=== PATIENT | male | born 1965 ===

== ENCOUNTER → 2022-10-18 | Outpatient (CLI) | payer OTHER | END | disposition home or self-care (01) | LOC: US 10-13 13:30 | PROVIDERS: ATTEND Internal Medicine Nephrology | DX: R80.9 Proteinuria, unspecified (principal); I10 Essential (primary) hypertension; E08.21 Diabetes mellitus due to underlying condition with diabetic nephropathy ==

== ENCOUNTER → 2022-12-09 | Outpatient (CLI) | payer OTHER ==
[2022-12-09 12:48] LABS: ALKALINE PHOSPHATASE 125 U/L (46-116); BUN 18 mg/dl (9-23); CHLORIDE 95 mmol/L (98-107); POTASSIUM 4.6 mmol/L (3.4-5.1); SGPT/ALT 15 U/L (10-49); TOTAL PROTEIN 7.5 gm/dL (6.0-8.0)
== END | disposition home or self-care (01) ==
LOC: LAB 12:06
PROVIDERS: ATTEND Internal Medicine
DX: R06.02 Shortness of breath (principal)

== ENCOUNTER → 2023-07-19 | Outpatient (CLI) | payer OTHER ==
[2023-07-19 12:22] LABS: BASO # 0.1 10*3/uL (0.0-0.1); BASO % 0.6 % (0.0-1.0); EOS # 0.4 10*3/uL (0.0-0.4); EOS % 4.2 % (1.0-4.0); HEMATOCRIT 39.9 % (42.0-52.0); LYMPH # 1.4 10*3/uL (1.3-4.4); LYMPH % 15.3 % (27.0-41.0); MEAN CELL VOLUME 101.8 fl (80.0-94.0); MEAN CORPUSCULAR HGB 32.1 pg (27.0-31.0); MEAN CORPUSCULAR HGB CONC 31.6 g/dl (33.0-37.0); MEAN PLATELET VOLUME 9.1 fl (9.6-12.3); MONO % 11.6 % (3.0-9.0); NEUT % 67.7 % (47.0-73.0); PLATELET COUNT AUTOMATED 316 10*3/uL (130-400); RED BLOOD COUNT 3.92 10*6/uL (4.50-5.90); RED CELL DISTRI WIDTH 14.6 % (0-14.5); WHITE BLOOD COUNT 8.8 10*3/uL (4.8-10.8)
[2023-07-19 12:54] LABS: ALKALINE PHOSPHATASE 152 U/L (46-116); BUN 20 mg/dl (9-23); CHLORIDE 100 mmol/L (98-107); POTASSIUM 3.6 mmol/L (3.4-5.1); SGPT/ALT 12 U/L (5-49)
== END | disposition home or self-care (01) ==
LOC: LAB 03:52 → WOUNDCARE 03:52
PROVIDERS: ATTEND Nurse Practitioner Family
DX: E11.622 Type 2 diabetes mellitus with other skin ulcer (principal); L97.812 Non-pressure chronic ulcer of other part of right lower leg with fat layer exposed; L97.822 Non-pressure chronic ulcer of other part of left lower leg with fat layer exposed; S80.821A Blister (nonthermal), right lower leg, initial encounter; E11.40 Type 2 diabetes mellitus with diabetic neuropathy, unspecified; I87.2 Venous insufficiency (chronic) (peripheral); I48.91 Unspecified atrial fibrillation; I10 Essential (primary) hypertension; M19.90 Unspecified osteoarthritis, unspecified site; M10.9 Gout, unspecified; E78.5 Hyperlipidemia, unspecified; Z87.891 Personal history of nicotine dependence; W19.XXXA Unspecified fall, initial encounter; Y93.89 Activity, other specified; Y92.89 Other specified places as the place of occurrence of the external cause; Y99.8 Other external cause status

== ENCOUNTER → 2023-07-26 | Outpatient (CLI) | payer OTHER | END | disposition home or self-care (01) | LOC: WOUNDCARE 01:59 | PROVIDERS: ATTEND Nurse Practitioner Family | DX: E11.622 Type 2 diabetes mellitus with other skin ulcer (principal); L97.812 Non-pressure chronic ulcer of other part of right lower leg with fat layer exposed; L97.822 Non-pressure chronic ulcer of other part of left lower leg with fat layer exposed; S80.821D Blister (nonthermal), right lower leg, subsequent encounter; E11.40 Type 2 diabetes mellitus with diabetic neuropathy, unspecified; E11.65 Type 2 diabetes mellitus with hyperglycemia; I87.2 Venous insufficiency (chronic) (peripheral); I48.91 Unspecified atrial fibrillation; I10 Essential (primary) hypertension; M19.90 Unspecified osteoarthritis, unspecified site; M10.9 Gout, unspecified; E78.5 Hyperlipidemia, unspecified; E46 Unspecified protein-calorie malnutrition; Z68.43 Body mass index [BMI] 50.0-59.9, adult; Z87.891 Personal history of nicotine dependence; W19.XXXD Unspecified fall, subsequent encounter ==

== ENCOUNTER → 2023-08-03 | Outpatient (CLI) | payer OTHER | END | disposition home or self-care (01) | LOC: WOUNDCARE 02:02 | PROVIDERS: ATTEND Nurse Practitioner Family | DX: E11.622 Type 2 diabetes mellitus with other skin ulcer (principal); L97.812 Non-pressure chronic ulcer of other part of right lower leg with fat layer exposed; L97.822 Non-pressure chronic ulcer of other part of left lower leg with fat layer exposed; E11.40 Type 2 diabetes mellitus with diabetic neuropathy, unspecified; E11.65 Type 2 diabetes mellitus with hyperglycemia; I87.2 Venous insufficiency (chronic) (peripheral); I48.91 Unspecified atrial fibrillation; I10 Essential (primary) hypertension; M19.90 Unspecified osteoarthritis, unspecified site; M10.9 Gout, unspecified; E78.5 Hyperlipidemia, unspecified; E46 Unspecified protein-calorie malnutrition; E66.01 Morbid (severe) obesity due to excess calories; Z68.43 Body mass index [BMI] 50.0-59.9, adult; Z87.891 Personal history of nicotine dependence; Z91.199 Patient's noncompliance with other medical treatment and regimen due to unspecified reason; Z79.4 Long term (current) use of insulin; Z79.899 Other long term (current) drug therapy ==

== ENCOUNTER → 2023-08-10 | Outpatient (CLI) | payer OTHER | END | disposition home or self-care (01) | LOC: WOUNDCARE 02:09 | PROVIDERS: ATTEND Nurse Practitioner Family | DX: E11.622 Type 2 diabetes mellitus with other skin ulcer (principal); L97.822 Non-pressure chronic ulcer of other part of left lower leg with fat layer exposed; L97.812 Non-pressure chronic ulcer of other part of right lower leg with fat layer exposed; E11.40 Type 2 diabetes mellitus with diabetic neuropathy, unspecified; E11.65 Type 2 diabetes mellitus with hyperglycemia; I48.91 Unspecified atrial fibrillation; I10 Essential (primary) hypertension; I87.2 Venous insufficiency (chronic) (peripheral); M19.90 Unspecified osteoarthritis, unspecified site; M10.9 Gout, unspecified; E78.5 Hyperlipidemia, unspecified; E46 Unspecified protein-calorie malnutrition; E66.01 Morbid (severe) obesity due to excess calories; Z68.43 Body mass index [BMI] 50.0-59.9, adult; Z87.891 Personal history of nicotine dependence; Z91.199 Patient's noncompliance with other medical treatment and regimen due to unspecified reason; Z79.4 Long term (current) use of insulin; Z79.899 Other long term (current) drug therapy ==

== ENCOUNTER → 2023-08-18 | Outpatient (CLI) | payer OTHER | END | disposition home or self-care (01) | LOC: WOUNDCARE 04:37 | PROVIDERS: ATTEND Nurse Practitioner Family | DX: E11.622 Type 2 diabetes mellitus with other skin ulcer (principal); L97.822 Non-pressure chronic ulcer of other part of left lower leg with fat layer exposed; L97.812 Non-pressure chronic ulcer of other part of right lower leg with fat layer exposed; E11.40 Type 2 diabetes mellitus with diabetic neuropathy, unspecified; E11.65 Type 2 diabetes mellitus with hyperglycemia; I48.91 Unspecified atrial fibrillation; I10 Essential (primary) hypertension; I87.2 Venous insufficiency (chronic) (peripheral); M19.90 Unspecified osteoarthritis, unspecified site; M10.9 Gout, unspecified; E78.5 Hyperlipidemia, unspecified; E46 Unspecified protein-calorie malnutrition; E66.01 Morbid (severe) obesity due to excess calories; Z68.43 Body mass index [BMI] 50.0-59.9, adult; Z87.891 Personal history of nicotine dependence; Z91.199 Patient's noncompliance with other medical treatment and regimen due to unspecified reason; Z79.4 Long term (current) use of insulin; Z79.899 Other long term (current) drug therapy ==

== ENCOUNTER → 2023-08-25 | Outpatient (CLI) | payer OTHER | END | disposition home or self-care (01) | LOC: WOUNDCARE 01:40 | PROVIDERS: ATTEND Nurse Practitioner Family | DX: E11.622 Type 2 diabetes mellitus with other skin ulcer (principal); L97.822 Non-pressure chronic ulcer of other part of left lower leg with fat layer exposed; L97.812 Non-pressure chronic ulcer of other part of right lower leg with fat layer exposed; I87.2 Venous insufficiency (chronic) (peripheral); E11.65 Type 2 diabetes mellitus with hyperglycemia; E11.40 Type 2 diabetes mellitus with diabetic neuropathy, unspecified; E78.5 Hyperlipidemia, unspecified; E46 Unspecified protein-calorie malnutrition; I48.91 Unspecified atrial fibrillation; I10 Essential (primary) hypertension; M10.9 Gout, unspecified; M19.90 Unspecified osteoarthritis, unspecified site; Z87.891 Personal history of nicotine dependence; Z91.199 Patient's noncompliance with other medical treatment and regimen due to unspecified reason ==

== ENCOUNTER 2023-09-01 15:37 | Inpatient (IN) | payer OTHER ==
[~2023-09-01] VITALS: Ht 177.8 cm; Wt 158.4 kg
[2023-09-01 15:50] VITALS: BP 126/56
[2023-09-01] MEDS ORDERED: GABAPENTIN600 MG PO (16:42)
[2023-09-01] MEDS ORDERED: JANTOVEN2.5 MG PO (16:42)
[2023-09-01] MEDS ORDERED: LOPERAMIDE HCL2 MG PO (16:43)
[2023-09-01] MEDS ORDERED: RYBELSUS3 MG PO (16:45)
[2023-09-01] MEDS ORDERED: PRAVASTATIN SOD80 MG PO (16:45)
[2023-09-01] MEDS ORDERED: SOTALOL HCL160 MG PO (16:46)
[2023-09-01] MEDS ORDERED: ALLOPURINOL300 MG PO (16:46)
[2023-09-01] MEDS ORDERED: LANTUS SOL100 UNIT/1 SQ (16:47)
[2023-09-01] MEDS ORDERED: TRAMADOL HCL50 MG PO (16:49)
[2023-09-01] MEDS ORDERED: DAKIN'S473 ML MC (16:51)
[2023-09-01] MEDS ORDERED: HYDR25T PO (16:51)
[2023-09-01 16:52] LABS: BASO # 0.1 10*3/uL (0.0-0.1); BASO % 0.9 % (0.0-1.0); EOS # 0.6 10*3/uL (0.0-0.4); EOS % 5.8 % (1.0-4.0); HEMATOCRIT 30.5 % (42.0-52.0); LYMPH # 1.1 10*3/uL (1.3-4.4); LYMPH % 11.2 % (27.0-41.0); MEAN CELL VOLUME 100.3 fl (80.0-94.0); MEAN CORPUSCULAR HGB 29.9 pg (27.0-31.0); MEAN CORPUSCULAR HGB CONC 29.8 g/dl (33.0-37.0); MEAN PLATELET VOLUME 9.1 fl (9.6-12.3); MONO % 10.4 % (3.0-9.0); NEUT % 71.2 % (47.0-73.0); PLATELET COUNT AUTOMATED 300 10*3/uL (130-400); RED BLOOD COUNT 3.04 10*6/uL (4.50-5.90); RED CELL DISTRI WIDTH 15.8 % (0-14.5); WHITE BLOOD COUNT 9.8 10*3/uL (4.8-10.8)
[2023-09-01] MEDS ORDERED: LASIX40 MG PO (16:52)
[2023-09-01] MEDS ORDERED: POTASSIUM99 M7 PO (16:53)
[2023-09-01] MEDS ORDERED: CIPROFLOXACIN500 M4 PO (16:55)
[2023-09-01 17:25] LABS: BUN 37 mg/dl (9-23); CHLORIDE 100 mmol/L (98-107); POTASSIUM 4.5 mmol/L (3.4-5.1)
[2023-09-01] MEDS ORDERED: Piperacillin Sodium/Tazobact 100 ML IV ONE (17:55)
[2023-09-01] MEDS ORDERED: Vancomycin Hydrochloride 250 ML IV ONE (17:55)
[2023-09-01] MEDS ORDERED: Loperamide Hydrochloride 2 MG CAP PO PRN (21:20)
[2023-09-01] MEDS ORDERED: GABAPENTIN 600 MG TAB PO SCH (22:00)
[2023-09-01] MEDS ORDERED: Ciprofloxacin Hydrochloride 500 MG TAB PO SCH (22:00)
[2023-09-01] MEDS ORDERED: Insulin Glargine, Recombinan 1 UNIT/0.01 ML SC SCH (22:00)
[2023-09-01] MEDS ORDERED: Sotalol Hydrochloride 80 MG TAB PO SCH (22:00)
[2023-09-01] MEDS ORDERED: VITAMIN D325 MCG PO (22:07)
[2023-09-01] MEDS ORDERED: AMLODIPINE BESY10 MG PO (22:08)
[2023-09-01 23:15] VITALS: BP 155/48
[2023-09-02] MEDS ORDERED: Acetaminophen/Hydrocodone 5 MG/325 MG TABLET PO PRN (02:55)
[2023-09-02 08:00] VITALS: BP 120/64
[2023-09-02] MEDS ORDERED: Sodium Hypochlorite 0.25% (1/2 STRENGTH DAKIN'S) 480 ML SOL T SCH (10:00)
[2023-09-02] MEDS ORDERED: ALLOPURINOL 300 MG TAB PO SCH (10:00)
[2023-09-02] MEDS ORDERED: FUROSEMIDE 40 MG TAB PO SCH (10:00)
[2023-09-02] MEDS ORDERED: HYDROCHLOROTHIAZIDE 12.5 MG CAP PO SCH (10:00)
[2023-09-02] MEDS ORDERED: ATORVASTATIN CALCIUM 20 MG TAB PO SCH (10:00)
[2023-09-02 15:58] VITALS: BP 122/66
[2023-09-02] MEDS ORDERED: WARFARIN SODIUM 2.5 MG TAB PO SCH (18:00)
[2023-09-02 19:52] VITALS: BP 120/44; BP 120/60
[2023-09-02] MEDS ORDERED: LORazepam 1 MG TAB PO SCH (22:00)
[2023-09-03] MEDS ORDERED: Piperacillin Sodium/Tazobact 4.5 GM in SODIUM CHLORIDE 0.9% 100 ML IV SCH
[2023-09-03 01:52] VITALS: BP 129/63
[2023-09-03 05:03] LABS: ALKALINE PHOSPHATASE 145 U/L (46-116); BUN 31 mg/dl (9-23); CHLORIDE 96 mmol/L (98-107); SGPT/ALT 10 U/L (5-49); TOTAL PROTEIN 6.4 gm/dL (6.0-8.0)
[2023-09-03 05:07] LABS: POTASSIUM 3.2 mmol/L (3.4-5.1)
[2023-09-03 06:09] LABS: BASO # 0.1 10*3/uL (0.0-0.1); BASO % 0.8 % (0.0-1.0); EOS # 0.7 10*3/uL (0.0-0.4); EOS % 6.8 % (1.0-4.0); LYMPH # 1.8 10*3/uL (1.3-4.4); LYMPH % 17.6 % (27.0-41.0); MEAN CELL VOLUME 101.9 fl (80.0-94.0); MEAN CORPUSCULAR HGB 29.8 pg (27.0-31.0); MEAN CORPUSCULAR HGB CONC 29.3 g/dl (33.0-37.0); MEAN PLATELET VOLUME 9.6 fl (9.6-12.3); MONO # 1.1 10*3/uL (0.1-1.0); MONO % 11.2 % (3.0-9.0); NEUT # 6.3 10*3/uL (2.3-7.9); NEUT % 62.9 % (47.0-73.0); PLATELET COUNT AUTOMATED 280 10*3/uL (130-400); RED BLOOD COUNT 2.65 10*6/uL (4.50-5.90); RED CELL DISTRI WIDTH 15.9 % (0-14.5)
[2023-09-03 08:00] VITALS: BP 137/57
[2023-09-03] MEDS ORDERED: amLODIPine besylate 10 MG TAB PO SCH (10:00)
[2023-09-03] MEDS ORDERED: DEXTROSE 10 % IN WATER 250 ML IV PRN (11:40)
[2023-09-03 12:00] VITALS: BP 137/56
[2023-09-03] MEDS ORDERED: INSULIN REGULAR, HUMAN 1 UNIT/0.01 ML SC SCH (16:30)
[2023-09-03 20:00] VITALS: BP 163/64
[2023-09-04] VITALS (8 sets, daily range): BP systolic 121–159; BP diastolic 45–73
[2023-09-04] MEDS ORDERED: SODIUM CHLORIDE 0.9% 1,000 ML IV ONE (12:37)
[2023-09-04] MEDS ORDERED: Ketamine Hydrochloride 50 MG/5 ML SYRINGE IV ONE (14:54)
[2023-09-04] MEDS ORDERED: PROPOFOL 200 MG/20 ML VIAL IV ONE (14:54)
[2023-09-04] MEDS ORDERED: Midazolam Hydrochloride 2 MG/2 ML VIAL IV ONE (14:54)
[2023-09-04 16:23] LABS: BASO # 0.1 10*3/uL (0.0-0.1); BASO % 0.7 % (0.0-1.0); EOS # 0.7 10*3/uL (0.0-0.4); EOS % 6.7 % (1.0-4.0); HEMATOCRIT 29.1 % (42.0-52.0); LYMPH # 1.5 10*3/uL (1.3-4.4); LYMPH % 14.4 % (27.0-41.0); MEAN CELL VOLUME 101.4 fl (80.0-94.0); MEAN CORPUSCULAR HGB 30.3 pg (27.0-31.0); MEAN CORPUSCULAR HGB CONC 29.9 g/dl (33.0-37.0); MEAN PLATELET VOLUME 9.1 fl (9.6-12.3); MONO # 0.8 10*3/uL (0.1-1.0); MONO % 7.3 % (3.0-9.0); NEUT # 7.3 10*3/uL (2.3-7.9); NEUT % 70.3 % (47.0-73.0); PLATELET COUNT AUTOMATED 322 10*3/uL (130-400); RED BLOOD COUNT 2.87 10*6/uL (4.50-5.90); RED CELL DISTRI WIDTH 15.9 % (0-14.5); WHITE BLOOD COUNT 10.4 10*3/uL (4.8-10.8)
[2023-09-04 16:42] LABS: BUN 22 mg/dl (9-23); CHLORIDE 98 mmol/L (98-107)
[2023-09-04] MEDS ORDERED: HEEL PROTECTOR DEVICE ONE (19:06)
[2023-09-04] MEDS ORDERED: CHAIR CUSHION DEVICE ONE (19:07)
[2023-09-04] MEDS ORDERED: POTASSIUM CHLORIDE 20 MEQ TAB PO ONE (21:55)
[2023-09-04] MEDS ORDERED: PIPERACIL-TAZO4.5 GM IV (22:34)
[2023-09-05] VITALS: BP 121/50
[2023-09-05 06:52] LABS: BASO # 0.1 10*3/uL (0.0-0.1); BASO % 0.6 % (0.0-1.0); EOS # 0.6 10*3/uL (0.0-0.4); EOS % 5.4 % (1.0-4.0); LYMPH # 1.9 10*3/uL (1.3-4.4); LYMPH % 18.3 % (27.0-41.0); MEAN CELL VOLUME 100.4 fl (80.0-94.0); MEAN CORPUSCULAR HGB 30.8 pg (27.0-31.0); MEAN CORPUSCULAR HGB CONC 30.7 g/dl (33.0-37.0); MEAN PLATELET VOLUME 9.4 fl (9.6-12.3); NEUT % 66.1 % (47.0-73.0); PLATELET COUNT AUTOMATED 336 10*3/uL (130-400); RED BLOOD COUNT 2.79 10*6/uL (4.50-5.90); RED CELL DISTRI WIDTH 16.1 % (0-14.5); WHITE BLOOD COUNT 10.6 10*3/uL (4.8-10.8)
[2023-09-05 07:14] LABS: ALKALINE PHOSPHATASE 140 U/L (46-116); BUN 22 mg/dl (9-23); CHLORIDE 97 mmol/L (98-107); POTASSIUM 3.5 mmol/L (3.4-5.1); SGPT/ALT 17 U/L (5-49); TOTAL PROTEIN 7.1 gm/dL (6.0-8.0)
[2023-09-05 08:00] VITALS: BP 125/81
[2023-09-05] MEDS ORDERED: POTASSIUM CHLORIDE 20 MEQ TAB PO SCH (10:00)
[2023-09-05 12:00] VITALS: BP 139/66
[2023-09-05] MEDS ORDERED: MAGNESIUM SULFATE 50 ML IV ONE (13:40)
[2023-09-05 14:09] LABS: ACID FAST SPEC PROCESSING Tissue Grinding (.)
[2023-09-05 14:09] LABS: ACID FAST SPEC PROCESSING Tissue Grinding (.)
[2023-09-05 14:09] LABS: ACID FAST SPEC PROCESSING Tissue Grinding (.)
[2023-09-05 14:09] LABS: ACID FAST SPEC PROCESSING Tissue Grinding (.)
[2023-09-05 18:00] VITALS: BP 133/51
[2023-09-05] MEDS ORDERED: WARFARIN SODIUM 4 MG TAB PO SCH (18:00)
[2023-09-05 20:00] VITALS: BP 124/45
[2023-09-06] VITALS: BP 121/52
[2023-09-06 06:34] LABS: BASO # 0.1 10*3/uL (0.0-0.1); BASO % 0.6 % (0.0-1.0); EOS # 0.4 10*3/uL (0.0-0.4); EOS % 5.2 % (1.0-4.0); HEMATOCRIT 26.1 % (42.0-52.0); LYMPH # 1.8 10*3/uL (1.3-4.4); LYMPH % 21.9 % (27.0-41.0); MEAN CELL VOLUME 101.2 fl (80.0-94.0); MEAN CORPUSCULAR HGB 29.8 pg (27.0-31.0); MEAN CORPUSCULAR HGB CONC 29.5 g/dl (33.0-37.0); MEAN PLATELET VOLUME 9.1 fl (9.6-12.3); MONO # 0.9 10*3/uL (0.1-1.0); MONO % 10.8 % (3.0-9.0); NEUT # 5.1 10*3/uL (2.3-7.9); NEUT % 60.9 % (47.0-73.0); PLATELET COUNT AUTOMATED 281 10*3/uL (130-400); RED BLOOD COUNT 2.58 10*6/uL (4.50-5.90); WHITE BLOOD COUNT 8.4 10*3/uL (4.8-10.8)
[2023-09-06 07:25] LABS: ALKALINE PHOSPHATASE 119 U/L (46-116); BUN 18 mg/dl (9-23); CHLORIDE 97 mmol/L (98-107); POTASSIUM 3.1 mmol/L (3.4-5.1); SGPT/ALT 13 U/L (5-49); TOTAL PROTEIN 6.6 gm/dL (6.0-8.0)
[2023-09-06 08:00] VITALS: BP 135/60
[2023-09-06] MEDS ORDERED: Albuterol Sulf/Ipratropium 3 ML VIAL NEB PRN (18:50)
[2023-09-06 20:00] VITALS: BP 137/54
[2023-09-07] VITALS: BP 130/63
[2023-09-07 06:31] LABS: BASO # 0.1 10*3/uL (0.0-0.1); BASO % 0.7 % (0.0-1.0); EOS # 0.5 10*3/uL (0.0-0.4); EOS % 5.4 % (1.0-4.0); HEMATOCRIT 27.1 % (42.0-52.0); LYMPH # 1.8 10*3/uL (1.3-4.4); LYMPH % 20.4 % (27.0-41.0); MEAN CELL VOLUME 100.7 fl (80.0-94.0); MEAN CORPUSCULAR HGB 29.4 pg (27.0-31.0); MEAN CORPUSCULAR HGB CONC 29.2 g/dl (33.0-37.0); MEAN PLATELET VOLUME 9.3 fl (9.6-12.3); MONO # 0.9 10*3/uL (0.1-1.0); MONO % 10.2 % (3.0-9.0); NEUT # 5.6 10*3/uL (2.3-7.9); NEUT % 62.6 % (47.0-73.0); PLATELET COUNT AUTOMATED 257 10*3/uL (130-400); RED BLOOD COUNT 2.69 10*6/uL (4.50-5.90); RED CELL DISTRI WIDTH 15.9 % (0-14.5)
[2023-09-07 07:35] LABS: ALKALINE PHOSPHATASE 114 U/L (46-116); BUN 16 mg/dl (9-23); CHLORIDE 98 mmol/L (98-107); POTASSIUM 3.3 mmol/L (3.4-5.1); SGPT/ALT 13 U/L (5-49); TOTAL PROTEIN 6.7 gm/dL (6.0-8.0)
[2023-09-07 08:00] VITALS: BP 130/56
[2023-09-07 12:00] VITALS: BP 120/44
[2023-09-07 16:00] VITALS: BP 136/75
[2023-09-07] MEDS ORDERED: WARFARIN SODIUM 5 MG TAB PO SCH (18:00)
[2023-09-07 20:00] VITALS: BP 138/57
[2023-09-08] VITALS: BP 126/64
[2023-09-08 08:00] VITALS: BP 150/72
[2023-09-08 12:00] VITALS: BP 125/56
[2023-09-08 16:00] VITALS: BP 152/63
[2023-09-08] MEDS ORDERED: WARFARIN SODIUM 6 MG TAB PO SCH (18:00)
[2023-09-08 20:00] VITALS: BP 144/55
[2023-09-09] VITALS: BP 160/60; BP 95/59
[2023-09-09 06:39] LABS: BASO # 0.1 10*3/uL (0.0-0.1); BASO % 0.6 % (0.0-1.0); EOS # 0.5 10*3/uL (0.0-0.4); EOS % 4.9 % (1.0-4.0); HEMATOCRIT 25.7 % (42.0-52.0); LYMPH # 2.2 10*3/uL (1.3-4.4); LYMPH % 21.7 % (27.0-41.0); MEAN CELL VOLUME 98.5 fl (80.0-94.0); MEAN CORPUSCULAR HGB 30.3 pg (27.0-31.0); MEAN CORPUSCULAR HGB CONC 30.7 g/dl (33.0-37.0); MEAN PLATELET VOLUME 9.6 fl (9.6-12.3); MONO % 9.9 % (3.0-9.0); NEUT # 6.2 10*3/uL (2.3-7.9); NEUT % 62.6 % (47.0-73.0); PLATELET COUNT AUTOMATED 217 10*3/uL (130-400); RED BLOOD COUNT 2.61 10*6/uL (4.50-5.90); RED CELL DISTRI WIDTH 15.9 % (0-14.5); WHITE BLOOD COUNT 9.9 10*3/uL (4.8-10.8)
[2023-09-09 06:59] LABS: ALKALINE PHOSPHATASE 103 U/L (46-116); BUN 14 mg/dl (9-23); CHLORIDE 98 mmol/L (98-107); POTASSIUM 3.3 mmol/L (3.4-5.1); SGPT/ALT 12 U/L (5-49)
[2023-09-09 08:00] VITALS: BP 112/64
[2023-09-09 12:00] VITALS: BP 114/60
[2023-09-09] MEDS ORDERED: Alteplase, Recombinant 2 MG/2 ML VIAL IV ONE (13:40)
[2023-09-09 16:00] VITALS: BP 114/60
[2023-09-09] MEDS ORDERED: WARFARIN SODIUM 7.5 MG TAB PO SCH (18:00)
[2023-09-09 20:00] VITALS: BP 147/59
[2023-09-09] MEDS ORDERED: Piperacillin Sodium/Tazobact 4.5 GM in SODIUM CHLORIDE 0.9% 100 ML IV SCH (20:00)
[2023-09-09] MEDS ORDERED: Acetaminophen/Hydrocodone 5 MG/325 MG TABLET PO PRN (21:45)
[2023-09-09] MEDS ORDERED: LORazepam 1 MG TAB PO PRN (22:40)
[2023-09-10] VITALS: BP 132/66
[2023-09-10 08:00] VITALS: BP 128/60
[2023-09-10 12:00] VITALS: BP 143/61
[2023-09-10] MEDS ORDERED: Alteplase, Recombinant 2 MG/2 ML VIAL IV ONE (12:15)
[2023-09-10 16:00] VITALS: BP 152/76
[2023-09-10 20:00] VITALS: BP 126/57
[2023-09-11 00:14] VITALS: BP 133/57
[2023-09-11 06:19] LABS: ALKALINE PHOSPHATASE 94 U/L (46-116); BUN 14 mg/dl (9-23); CHLORIDE 97 mmol/L (98-107); POTASSIUM 3.2 mmol/L (3.4-5.1); SGPT/ALT 12 U/L (5-49)
[2023-09-11 06:20] LABS: BASO # 0.1 10*3/uL (0.0-0.1); BASO % 0.8 % (0.0-1.0); EOS # 0.5 10*3/uL (0.0-0.4); EOS % 5.2 % (1.0-4.0); HEMATOCRIT 24.7 % (42.0-52.0); LYMPH # 1.8 10*3/uL (1.3-4.4); LYMPH % 20.6 % (27.0-41.0); MEAN CELL VOLUME 97.6 fl (80.0-94.0); MEAN CORPUSCULAR HGB CONC 30.8 g/dl (33.0-37.0); MEAN PLATELET VOLUME 9.9 fl (9.6-12.3); MONO % 11.4 % (3.0-9.0); NEUT # 5.3 10*3/uL (2.3-7.9); NEUT % 61.5 % (47.0-73.0); PLATELET COUNT AUTOMATED 198 10*3/uL (130-400); RED BLOOD COUNT 2.53 10*6/uL (4.50-5.90); RED CELL DISTRI WIDTH 15.8 % (0-14.5); WHITE BLOOD COUNT 8.6 10*3/uL (4.8-10.8)
[2023-09-11 08:00] VITALS: BP 127/61
[2023-09-11 12:00] VITALS: BP 155/62
[2023-09-11] MEDS ORDERED: LEXAPRO10 MG PO (12:52)
[2023-09-11 16:00] VITALS: BP 158/72
== END 2023-09-11 20:06 | DRG 574 ==
LOC: ED 15:37 → 4E 19:45 → EDHOLD 19:45 → 4E 09-03 00:18
PROVIDERS: Internal Medicine Infectious Disease; Internal Medicine Nephrology; Nurse Practitioner Family; Podiatrist; ADMIT Internal Medicine; ATTEND Internal Medicine
PROC: 0QBM0ZZ Excision of Left Tarsal, Open Approach (ICD-10-PCS; principal; 2023-09-04)
PROC: 0HRLXK3 Replacement of Left Lower Leg Skin with Nonautologous Tissue Substitute, Full Thickness, External Approach (ICD-10-PCS; 2023-09-04)
PROC: 0QBL0ZZ Excision of Right Tarsal, Open Approach (ICD-10-PCS; 2023-09-04)
PROC: 02HV33Z Insertion of Infusion Device into Superior Vena Cava, Percutaneous Approach (ICD-10-PCS; 2023-09-06)
DX: L03.115 Cellulitis of right lower limb (principal); E87.1 Hypo-osmolality and hyponatremia; L97.419 Non-pressure chronic ulcer of right heel and midfoot with unspecified severity; M86.179 Other acute osteomyelitis, unspecified ankle and foot; L97.429 Non-pressure chronic ulcer of left heel and midfoot with unspecified severity; L03.116 Cellulitis of left lower limb; I10 Essential (primary) hypertension; F10.10 Alcohol abuse, uncomplicated; G47.33 Obstructive sleep apnea (adult) (pediatric); E66.01 Morbid (severe) obesity due to excess calories; F41.8 Other specified anxiety disorders; E11.69 Type 2 diabetes mellitus with other specified complication; E78.5 Hyperlipidemia, unspecified; E11.51 Type 2 diabetes mellitus with diabetic peripheral angiopathy without gangrene; E11.622 Type 2 diabetes mellitus with other skin ulcer; E87.6 Hypokalemia; Z68.43 Body mass index [BMI] 50.0-59.9, adult; Z82.49 Family history of ischemic heart disease and other diseases of the circulatory system; Z80.41 Family history of malignant neoplasm of ovary